=== PATIENT | female | born 2000 | race African-American/Black ===

== ENCOUNTER 2020-04-30 09:12 | Emergency (ER) | payer SELFPAY ==
[~2020-04-30] VITALS: Ht 160 cm; Wt 72.1 kg
[2020-04-30 09:46] VITALS: BP 109/68
[2020-04-30 10:47] LABS: Urine Bacteria FEW /hpf (None Seen); Urine Blood 3+ /uL (Negative); Urine Mucus FEW (None Seen); Urine Specific Gravity 1.028 (1.001-1.035); Urine WBC 102 /hpf (0 - 5)
[2020-04-30] MEDS ORDERED: LIDOCAINE 1% HCL (LOCAL ANESTH.) INJ 20ML MDV ONE (11:09)
[2020-04-30] MEDS ORDERED: LIDOCAINE 1% HCL (LOCAL ANESTH.) INJ 20ML MDV IJ ONE (11:15)
[2020-04-30] MEDS ORDERED: cefTRIAXone SOD 1,000 MG VL IM ONE (11:15)
[2020-04-30] MEDS ORDERED: PHENAZOPYRIDINE HCL 100 MG TAB PO ONE (11:15)
== END 2020-04-30 11:19 | disposition home or self-care (01) ==
LOC: ER 09:12
DX: N39.0 Urinary tract infection, site not specified (principal)
CPT/HCPCS: 81001; 81025; 96372; 99283; J0696; J2001

== ENCOUNTER 2020-08-09 13:16 | Emergency (ER) | payer MEDICAID ==
[~2020-08-09] VITALS: Ht 157.5 cm; Wt 68.0 kg
[2020-08-09 15:00] VITALS: BP 105/65
[2020-08-09] MEDS ORDERED: LIDOCAINE 1% HCL (LOCAL ANESTH.) INJ 20ML MDV IJ ONE (15:15)
[2020-08-09] MEDS ORDERED: ACETAMINOPHEN/CODEINE#3 (300/30mg) TAB PO ONE (15:30)
== END 2020-08-09 17:12 | disposition home or self-care (01) ==
LOC: ER 13:16
DX: S01.81XA Laceration without foreign body of other part of head, initial encounter (principal); X58.XXXA Exposure to other specified factors, initial encounter; Y93.89 Activity, other specified; Y92.89 Other specified places as the place of occurrence of the external cause; Y99.8 Other external cause status
CPT/HCPCS: 12013; 99283; J2001

== ENCOUNTER 2022-10-15 23:30 | Inpatient (IN) | payer MEDICAID ==
[~2022-10-15] VITALS: Ht 160 cm; Wt 107.2 kg
[2022-10-16 02:07] LABS: Basophils # (auto) 0 10 ^3/uL (0-0.2); Basophils % (auto) 0.7 % (0.0-2.0); Eosinophils # (auto) 0.2 10 ^3/uL (0-0.8); Eosinophils % (auto) 2.4 % (0.0-7.0); Hematocrit 35.2 % (36.0-46.0); Hemoglobin 11.8 g/dL (12.2-16.2); Lymphocytes # (auto) 1.3 10 ^3/uL (0.4-5.4); Lymphocytes % (auto) 17.7 % (10.0-50.0); Mean Corpuscular Hemoglobin 26.6 pg (28.0-32.0); Mean Corpuscular Hgb Conc. 33.5 g/dL (32.0-36.0); Mean Corpuscular Volume 79.5 fL (80.0-100.0); Monocytes # (auto) 0.8 10 ^3/uL (0-1.3); Monocytes % (auto) 11.4 % (0.0-12.0); Neutrophils # (auto) 4.9 10 ^3/uL (1.6-8.6); Neutrophils % (auto) 67.8 % (37.0-80.0); Red Blood Cells 4.43 10^6/uL (4.0-5.20); Red Cell Distribution Width 14.6 % (11.8-14.3); White Blood Cell 7.2 10^3/uL (4.4-10.8)
[2022-10-16 02:25] LABS: Albumin 2.4 g/dL (3.4-5.0); BUN/Creatinine Ratio 5.7; Calcium 8.5 mg/dL (8.5-10.1); INR 0.91 (0.9-1.15); Potassium 3.3 mmol/L (3.5-5.1)
[2022-10-16 02:27] LABS: Bilirubin, Total 0.2 mg/dL (0.2-1.0); Total Protein 7.1 g/dL (6.4-8.2)
[2022-10-16] MEDS ORDERED: ENOXAPARIN SOD 100 MG/1 ML SYRINGE SC ONE (05:00)
[2022-10-16] MEDS ORDERED: cefTRIAXone 1GM/50ML D5W 50 ML IV ONE (05:00)
[2022-10-16] MEDS ORDERED: ACETAMINOPHEN 325 MG TAB PO PRN (05:45)
[2022-10-16] MEDS ORDERED: ONDANSETRON HCL 4 MG/2 ML VIAL IV PRN (05:45)
[2022-10-16] MEDS: CLINDAMYCIN 600MG IV 50 ML IV SCH ×2 (06:00→14:08)
[2022-10-16] MEDS ORDERED: ENOXAPARIN SOD 40 MG/0.4 ML SYRINGE SC SCH (10:00)
[2022-10-16] MEDS: PANTOPRAZOLE 40 MG TAB PO SCH (12:02)
[2022-10-16] MEDS ORDERED: OMNIPAQUE ORAL SOLN 500ml 12mg/ml PO ONE (12:07)
[2022-10-16] MEDS: HYDROcodone-ACET 5/325MG TAB PO PRN ×3 (12:17→21:37)
[2022-10-16] MEDS ORDERED: IOHEXOL 350 MG/ML 100ML IJ ONE (19:57)
[2022-10-16] MEDS: ceFAZolin 2 GM in D5W 5% 100 ML IV SCH (22:00)
[2022-10-16] MEDS: ENOXAPARIN SOD 100 MG/1 ML SYRINGE SC SCH (23:09)
[2022-10-16 23:30] VITALS: BP 117/72
[2022-10-16 23:33] VITALS: BP 117/72
[2022-10-17] MEDS: HYDROcodone-ACET 5/325MG TAB PO PRN ×2 (01:32→13:07)
[2022-10-17 05:00] VITALS: BP 154/82
[2022-10-17 05:30] VITALS: BP 111/67
[2022-10-17] MEDS: ceFAZolin 2 GM in D5W 5% 100 ML IV SCH ×2 (05:45→13:06)
[2022-10-17 06:48] LABS: BUN/Creatinine Ratio 6.8; Calcium 8.7 mg/dL (8.5-10.1); Potassium 3.5 mmol/L (3.5-5.1)
[2022-10-17 06:49] LABS: Basophils # (auto) 0 10 ^3/uL (0-0.2); Basophils % (auto) 0.5 % (0.0-2.0); Eosinophils # (auto) 0.2 10 ^3/uL (0-0.8); Eosinophils % (auto) 2.5 % (0.0-7.0); Hematocrit 34.9 % (36.0-46.0); Lymphocytes # (auto) 1.9 10 ^3/uL (0.4-5.4); Lymphocytes % (auto) 30.2 % (10.0-50.0); Mean Corpuscular Hgb Conc. 34.5 g/dL (32.0-36.0); Mean Corpuscular Volume 78.5 fL (80.0-100.0); Monocytes # (auto) 0.7 10 ^3/uL (0-1.3); Monocytes % (auto) 10.7 % (0.0-12.0); Neutrophils # (auto) 3.5 10 ^3/uL (1.6-8.6); Neutrophils % (auto) 56.1 % (37.0-80.0); Nucleated Red Blood Cells % 0.1 %; Red Blood Cells 4.45 10^6/uL (4.0-5.20); Red Cell Distribution Width 14.9 % (11.8-14.3); White Blood Cell 6.3 10^3/uL (4.4-10.8)
[2022-10-17 09:00] VITALS: BP 109/60
[2022-10-17] MEDS ORDERED: CEFTRIAXONE SODIUM 2 GM in D5W 5% 50 ML IV SCH (10:00)
[2022-10-17] MEDS: PANTOPRAZOLE 40 MG TAB PO SCH (11:18)
[2022-10-17] MEDS: ENOXAPARIN SOD 100 MG/1 ML SYRINGE SC SCH (11:18)
[2022-10-17 13:00] VITALS: BP 121/82
[2022-10-17 13:25] LABS: Alcohol, Urine < 3.0 mg/dL (0-10); Amphetamine Screen, Urine NEGATIVE (NEGATIVE); Barbiturate Scree,Urine NEGATIVE (NEGATIVE); Benzodiazephine Screen, Urine NEGATIVE (NEGATIVE); Cannabinoid Screen, Urine POSITIVE (NEGATIVE); Cocaine Screen, Urine NEGATIVE (NEGATIVE); Opiate Scree,Urine POSITIVE (NEGATIVE); Phencyclidine Screen, Urine NEGATIVE (NEGATIVE); Urine Bacteria NONE SEEN /hpf (None Seen); Urine Blood Negative /uL (Negative); Urine Specific Gravity 1.017 (1.001-1.035); Urine WBC 1 /hpf (0 - 5)
[2022-10-17] MEDS ORDERED: CEPH-510 PO ×2 (13:44)
[2022-10-17] MEDS ORDERED: APIX5TAB PO ×2 (13:44)
[2022-10-17] MEDS ORDERED: PERCOT PO ×2 (13:50)
[2022-10-17 15:26] VITALS: BP 121/82
[2022-10-17] MEDS ORDERED: APIXABAN 5 MG TAB PO SCH (22:00)
[2022-10-18] MEDS ORDERED: APIX5TAB PO (15:44)
[2022-10-18] MEDS ORDERED: CEPH-510 PO (15:45)
[2022-10-18] MEDS ORDERED: PERCOT PO (15:46)
== END 2022-10-17 16:28 | disposition home or self-care (01) | DRG 383 ==
LOC: EDBD 23:30 → ER 23:30 → OVERFLOW 10-16 05:40 → WEST WING 10-16 22:46
PROVIDERS: ADMIT Nurse Practitioner; ATTEND Internal Medicine
DX: L03.116 Cellulitis of left lower limb (principal); E44.0 Moderate protein-calorie malnutrition; E87.6 Hypokalemia; A49.1 Streptococcal infection, unspecified site; Z20.822 Contact with and (suspected) exposure to COVID-19; I10 Essential (primary) hypertension; Z86.718 Personal history of other venous thrombosis and embolism; Z68.41 Body mass index [BMI] 40.0-44.9, adult
CPT/HCPCS: 36415; 71045; 74177; 80048; 80053; 80307; 80320; 81001; 81025; 82010; 83690; 83880; 84484; 84702; 85025; 85379; 85610; 85730; 87040; 87081; 87426; 87804; 93970; 96372; 96374; G0378; J0690; J0696; J3490; J7060